=== PATIENT | male | born 1995 | race Caucasian/White ===

== ENCOUNTER 2016-04-27 13:33 | Emergency (ER) | payer SELFPAY ==
[~2016-04-27] VITALS: Ht 175.3 cm; Wt 72.6 kg
[2016-04-27 13:38] VITALS: BP 115/68
[2016-04-27] MEDS ORDERED: ONDANSETRON 4 MG TAB.RAPDIS ONE (15:11)
[2016-04-27] MEDS ORDERED: ONDANSETRON 4 MG TAB.RAPDIS SL ONE (15:30)
== END 2016-04-27 15:22 | disposition home or self-care (01) ==
LOC: ER 13:35
DX: F15.93 Other stimulant use, unspecified with withdrawal (principal); F11.10 Opioid abuse, uncomplicated
CPT/HCPCS: 99283; A4606; Q0162; Z7610